=== PATIENT | female | born 1990 | race Two or more races ===

== ENCOUNTER 2018-08-26 10:14 | Outpatient (CLI) | payer OTHER | END 2018-08-26 10:25 | disposition home or self-care (01) | LOC: SONOGRAMA 10:14 | DX: E04.1 Nontoxic single thyroid nodule (principal) ==

== ENCOUNTER 2021-07-02 12:49 | Outpatient (CLI) | payer OTHER | END 2021-07-02 13:38 | disposition home or self-care (01) | LOC: NST 12:49 | PROVIDERS: ATTEND Obstetrics & Gynecology Maternal & Fetal Medicine | DX: Z34.83 Encounter for supervision of other normal pregnancy, third trimester (principal) ==

== ENCOUNTER 2021-07-02 13:30 | Inpatient (IN) | payer OTHER ==
[~2021-07-02] VITALS: Ht 160 cm; Wt 3.2 kg
[2021-07-10] MEDS ORDERED: PRENATAL CAPLE1 EAC1 PO (07:27)
== END 2021-07-12 14:20 | disposition home or self-care (01) | DRG 788 ==
LOC: OB/GYN 07-10 05:29 → LDR 07-10 05:29 → OB/GYN 07-10 15:43 → SURH 07-13 13:30
PROVIDERS: ADMIT Obstetrics & Gynecology Maternal & Fetal Medicine; ATTEND Obstetrics & Gynecology Maternal & Fetal Medicine
PROC: 3E033VJ Introduction of Other Hormone into Peripheral Vein, Percutaneous Approach (ICD-10-PCS; 2021-07-10)
PROC: 4A1HXFZ Monitoring of Products of Conception, Cardiac Rhythm, External Approach (ICD-10-PCS; 2021-07-10)
PROC: 10D00Z1 Extraction of Products of Conception, Low, Open Approach (ICD-10-PCS; principal; 2021-07-10 13:45)
DX: O64.0XX0 Obstructed labor due to incomplete rotation of fetal head, not applicable or unspecified (principal); O62.1 Secondary uterine inertia; Z3A.39 39 weeks gestation of pregnancy; Z37.0 Single live birth

== ENCOUNTER 2023-08-12 06:46 | Day surgery (SDC) | payer OTHER ==
[2023-08-11 14:25] LABS: PARTIAL THROMBOPLASTIN TIME 27.4 SECONDS (22.0-34.0); PROTHROMBIN TIME 10.5 SECONDS (9.0-11.5)
[~2023-08-12 06:46] MED LIST: PRENATAL CAPLE1 EAC1 PO
== END 2023-08-12 16:35 | disposition home or self-care (01) ==
LOC: CIR.AMB 06:46
PROVIDERS: ATTEND Obstetrics & Gynecology Maternal & Fetal Medicine
DX: O02.1 Missed abortion (principal); Z20.822 Contact with and (suspected) exposure to COVID-19; Z91.013 Allergy to seafood